=== PATIENT | male | born 1980 | race Caucasian/White ===

== ENCOUNTER 2017-10-30 15:05 | Inpatient (IN) | payer MEDICAID ==
[~2017-10-30] VITALS: Ht 172.7 cm; Wt 68.0 kg
[~2017-10-30 15:05] MED LIST: FOLI-43 PO; HYDR-1189 PO; LIPA1CAP15 PO; METO-290 PO; MULT PO; PRO40 PO; THIA100T13 PO
[2017-10-30 15:21] VITALS: BP_SYST 138
[2017-10-30] MEDS ORDERED: ONDANSETRON HCL 4 MG/2 ML VIAL IVP ONE ×2 (16:15→17:15)
[2017-10-30] MEDS ORDERED: KETOROLAC TROMETHAMINE 30 MG VIAL IVP ONE (16:15)
[2017-10-30 16:22] LABS: BASOPHILS % (AUTO) 0.4 % (0.0-2.0); EOSINOPHILS % (AUTO) 0.2 % (0.0-4.0); HEMATOCRIT 43.1 % (36-54); HEMOGLOBIN 14.9 g/dL (14.0-18.0); LYMPHOCYTES # (AUTO) 2.3 K/uL (1.0-5.5); MEAN CORPUSCULAR HEMOGLOBIN 33 pg (27-31); MEAN CORPUSCULAR HGB CONC 35 % (32-36); MEAN CORPUSCULAR VOLUME 94 fL (79.0-98.0); MONOCYTES # (AUTO) 0.6 K/uL (0.0-1.0); MONOCYTES % (AUTO) 5.8 % (1.7-9.3); NEUTROPHILS % (AUTO) 72.6 % (40.0-70.0); PLATELET COUNT (AUTO) 329 K/uL (130-430); RED BLOOD CELL COUNT(AUTO) 4.56 MIL/uL (4.2-6.2); RED CELL DISTRIBUTION WIDTH 13.2 % (9.0-15.0); WHITE BLOOD COUNT (AUTO) 10.9 K/uL (4.8-10.8)
[2017-10-30 16:39] LABS: CALCIUM 9.6 mg/dL (8.4-11.0); CREATININE 0.94 mg/dL (0.55-1.30); POTASSIUM 3.5 mmol/L (3.5-5.1)
[2017-10-30 16:44] LABS: ALBUMIN 4.2 g/dL (3.4-4.8)
[2017-10-30] MEDS ORDERED: fentaNYL CITRATE/PF 100 MCG/2 ML AMP IVP ONE (17:15)
[2017-10-30 18:33] VITALS: BP_SYST 124
[2017-10-30] MEDS ORDERED: KCL 20 mEq in NS 1000 mL 1,000 ML IV SCH (18:51)
[2017-10-30] MEDS ORDERED: MORPHINE 2 MG/ML INJ. SYRINGE IVP PRN (19:00)
[2017-10-30] MEDS ORDERED: ONDANSETRON HCL 4 MG/2 ML VIAL IVP PRN (19:00)
[2017-10-30] MEDS ORDERED: ACETAMINOPHEN 650 MG SUPP.RECT RC PRN (19:00)
[2017-10-30 19:20] VITALS: BP_SYST 129
[2017-10-30 19:41] VITALS: BP_SYST 151
[2017-10-30] MEDS ORDERED: MORPHINE 4 MG/ML INJ. SYRINGE ONE (21:12)
[2017-10-30] MEDS: BANANA BAG 1 EA, MVI 10 ML, THIAMINE HCL 100 MG, FOLIC ACID 1 MG, MAGNESIUM SULFATE 1 G... IV SCH ×5 (21:14)
[2017-10-30] MEDS: PANTOPRAZOLE SODIUM 40 MG/VIAL (PROTONIX) IVP SCH (21:18)
[2017-10-30 23:17] VITALS: BP_SYST 131
[2017-10-31] MEDS: MORPHINE 4 MG/ML INJ. SYRINGE IVP PRN ×6 (01:25→23:08)
[2017-10-31] MEDS: LORazepam 2 MG/ML VIAL IVP PRN ×2 (02:46→23:35)
[2017-10-31] MEDS: KCL 20 mEq in NS 1000 mL 1,000 ML IV SCH (06:39)
[2017-10-31 07:03] LABS: BASOPHILS % (AUTO) 0.1 % (0.0-2.0); EOSINOPHILS # (AUTO) 0.1 K/uL (0.0-0.4); EOSINOPHILS % (AUTO) 0.8 % (0.0-4.0); HEMATOCRIT 39.8 % (36-54); HEMOGLOBIN 13.7 g/dL (14.0-18.0); LYMPHOCYTES # (AUTO) 3.1 K/uL (1.0-5.5); LYMPHOCYTES % (AUTO) 32.5 % (20.5-51.5); MEAN CORPUSCULAR HEMOGLOBIN 33 pg (27-31); MEAN CORPUSCULAR HGB CONC 34 % (32-36); MEAN CORPUSCULAR VOLUME 97 fL (79.0-98.0); MONOCYTES # (AUTO) 0.6 K/uL (0.0-1.0); MONOCYTES % (AUTO) 6.4 % (1.7-9.3); NEUTROPHILS # (AUTO) 5.7 K/uL (1.8-7.7); NEUTROPHILS % (AUTO) 60.2 % (40.0-70.0); PLATELET COUNT (AUTO) 271 K/uL (130-430); RED BLOOD CELL COUNT(AUTO) 4.12 MIL/uL (4.2-6.2); RED CELL DISTRIBUTION WIDTH 13.4 % (9.0-15.0); WHITE BLOOD COUNT (AUTO) 9.4 K/uL (4.8-10.8)
[2017-10-31 07:32] LABS: ALBUMIN 3.5 g/dL (3.4-4.8); BILIRUBIN,DIRECT 0.3 mg/dL (0.0-0.3); CALCIUM 9.2 mg/dL (8.4-11.0); CREATININE 0.77 mg/dL (0.55-1.30); POTASSIUM 3.2 mmol/L (3.5-5.1); THYROID STIMULATING HORMONE 2.24 uIu/mL (0.34-4.82)
[2017-10-31 08:00] VITALS: BP_SYST 118
[2017-10-31] MEDS ORDERED: POTASSIUM CHLORIDE 40 MEQ, LIDOCAINE JECT 2% PF 100 MG 50 MG in NS 250 ML IV ONE (11:00)
[2017-10-31 12:00] VITALS: BP_SYST 117
[2017-10-31 16:00] VITALS: BP_SYST 110
[2017-10-31] MEDS: PANTOPRAZOLE SODIUM 40 MG/VIAL (PROTONIX) IVP SCH (18:54)
[2017-10-31 19:10] VITALS: BP_SYST 118
[2017-10-31] MEDS ORDERED: VANCOMYCIN HCL 1 GM/NS PREMIX 250 ML IV ONE (20:00)
[2017-10-31] MEDS: BANANA BAG 1 EA, MVI 10 ML, THIAMINE HCL 100 MG, FOLIC ACID 1 MG, MAGNESIUM SULFATE 1 G... IV SCH ×5 (20:31)
[2017-11-01 00:15] VITALS: BP_SYST 116
[2017-11-01 06:29] LABS: BASOPHILS % (AUTO) 0.3 % (0.0-2.0); EOSINOPHILS # (AUTO) 0.1 K/uL (0.0-0.4); EOSINOPHILS % (AUTO) 1.3 % (0.0-4.0); HEMATOCRIT 39.3 % (36-54); HEMOGLOBIN 13.3 g/dL (14.0-18.0); LYMPHOCYTES # (AUTO) 2.6 K/uL (1.0-5.5); LYMPHOCYTES % (AUTO) 31.5 % (20.5-51.5); MEAN CORPUSCULAR HEMOGLOBIN 33 pg (27-31); MEAN CORPUSCULAR HGB CONC 34 % (32-36); MEAN CORPUSCULAR VOLUME 97 fL (79.0-98.0); MONOCYTES # (AUTO) 0.5 K/uL (0.0-1.0); MONOCYTES % (AUTO) 5.7 % (1.7-9.3); NEUTROPHILS % (AUTO) 61.2 % (40.0-70.0); PLATELET COUNT (AUTO) 270 K/uL (130-430); RED BLOOD CELL COUNT(AUTO) 4.07 MIL/uL (4.2-6.2); RED CELL DISTRIBUTION WIDTH 13.3 % (9.0-15.0); WHITE BLOOD COUNT (AUTO) 8.2 K/uL (4.8-10.8)
[2017-11-01 07:22] LABS: ALBUMIN 3.2 g/dL (3.4-4.8); BILIRUBIN,DIRECT 0.2 mg/dL (0.0-0.3); CALCIUM 9.1 mg/dL (8.4-11.0); CREATININE 0.68 mg/dL (0.55-1.30); POTASSIUM 3.7 mmol/L (3.5-5.1); TOTAL BILIRUBIN 0.7 mg/dL (0.0-1.0)
[2017-11-01 09:06] VITALS: BP_SYST 141
[2017-11-01] MEDS: MORPHINE 4 MG/ML INJ. SYRINGE IVP PRN ×4 (09:19→22:27)
[2017-11-01] MEDS: KCL 20 mEq in NS 1000 mL 1,000 ML IV SCH (09:21)
[2017-11-01 11:45] VITALS: BP_SYST 116
[2017-11-01] MEDS ORDERED: ACETAMINOPHEN 325 MG TABLET PO PRN (15:30)
[2017-11-01 16:00] VITALS: BP_SYST 141
[2017-11-01] MEDS: VANCOMYCIN HCL 750 MG in NS 250 ML IV SCH (17:31)
[2017-11-01] MEDS: PANTOPRAZOLE SODIUM 40 MG/VIAL (PROTONIX) IVP SCH (18:42)
[2017-11-01 20:05] VITALS: BP_SYST 119
[2017-11-01] MEDS: BANANA BAG 1 EA, MVI 10 ML, THIAMINE HCL 100 MG, FOLIC ACID 1 MG, MAGNESIUM SULFATE 1 G... IV SCH ×5 (22:30)
[2017-11-02] MEDS: LORazepam 2 MG/ML VIAL IVP PRN ×2 (00:32→23:48)
[2017-11-02 01:01] VITALS: BP_SYST 128
[2017-11-02] MEDS: VANCOMYCIN HCL 750 MG in NS 250 ML IV SCH ×3 (01:32→17:07)
[2017-11-02] MEDS: KCL 20 mEq in NS 1000 mL 1,000 ML IV SCH ×2 (06:00→11:37)
[2017-11-02 07:20] LABS: ALBUMIN 3.3 g/dL (3.4-4.8); CALCIUM 9.6 mg/dL (8.4-11.0); CREATININE 0.64 mg/dL (0.55-1.30); POTASSIUM 4.7 mmol/L (3.5-5.1); TOTAL BILIRUBIN 0.7 mg/dL (0.0-1.0)
[2017-11-02 07:50] VITALS: BP_SYST 116
[2017-11-02] MEDS: MORPHINE 4 MG/ML INJ. SYRINGE IVP PRN ×5 (08:14→21:40)
[2017-11-02 11:40] VITALS: BP_SYST 107
[2017-11-02 17:05] VITALS: BP_SYST 107
[2017-11-02] MEDS: PANTOPRAZOLE SODIUM 40 MG/VIAL (PROTONIX) IVP SCH (18:45)
[2017-11-02 21:35] VITALS: BP_SYST 133
[2017-11-02] MEDS: BANANA BAG 1 EA, MVI 10 ML, THIAMINE HCL 100 MG, FOLIC ACID 1 MG, MAGNESIUM SULFATE 1 G... IV SCH ×5 (21:37)
[2017-11-03 00:21] VITALS: BP_SYST 117
[2017-11-03] MEDS: VANCOMYCIN HCL 750 MG in NS 250 ML IV SCH ×2 (02:19→09:38)
[2017-11-03] MEDS: MORPHINE 4 MG/ML INJ. SYRINGE IVP PRN ×3 (02:29→16:09)
[2017-11-03 07:34] LABS: ALBUMIN 3.1 g/dL (3.4-4.8); CALCIUM 9.2 mg/dL (8.4-11.0); CREATININE 0.68 mg/dL (0.55-1.30); TOTAL BILIRUBIN 0.5 mg/dL (0.0-1.0)
[2017-11-03] MEDS ORDERED: KCL 20 mEq in NS 1000 mL 1,000 ML IV SCH (08:00)
[2017-11-03 08:02] VITALS: BP_SYST 137
[2017-11-03] MEDS ORDERED: THIAMINE HCL 100 MG TABLET PO SCH (09:00)
[2017-11-03] MEDS ORDERED: FOLIC ACID 1 MG TABLET PO SCH (09:00)
[2017-11-03 11:35] VITALS: BP_SYST 124
[2017-11-03 15:59] VITALS: BP_SYST 127
[2017-11-03 16:24] VITALS: BP_SYST 127
== END 2017-11-03 17:25 | disposition home or self-care (01) | DRG 282 ==
LOC: SED 15:05 → STU 17:50 → SMU 10-31 13:39
PROVIDERS: ADMIT Internal Medicine; ATTEND Internal Medicine
DX: K85.20 Alcohol induced acute pancreatitis without necrosis or infection (principal); E87.1 Hypo-osmolality and hyponatremia; F17.200 Nicotine dependence, unspecified, uncomplicated; F10.20 Alcohol dependence, uncomplicated; F12.20 Cannabis dependence, uncomplicated; F41.9 Anxiety disorder, unspecified; R73.9 Hyperglycemia, unspecified; E86.0 Dehydration; E87.6 Hypokalemia
CPT/HCPCS: 36415; 76700-TC; 80048; 80053; 80076; 82150-TC; 83690-TC; 83735-TC; 84443-TC; 85025; 87040-TC; 96374; 96375; 96376; 99285; C9113; J1885; J2060; J2270; J2405; J3010; J3370; J3411; J3475; J3480; J3490; J7030; J7050

== ENCOUNTER 2017-12-02 19:00 | Inpatient (IN) | payer MEDICAID ==
[~2017-12-02] VITALS: Ht 172.7 cm; Wt 72.6 kg
[~2017-12-02 19:00] MED LIST changes: -METO-290 PO; -PRO40 PO
[2017-12-02 19:13] VITALS: BP_SYST 143
[2017-12-02 19:41] LABS: EOSINOPHILS % (AUTO) 0.1 % (0.0-4.0); HEMOGLOBIN 16.3 g/dL (14.0-18.0); LYMPHOCYTES # (AUTO) 2.4 K/uL (1.0-5.5); MEAN CORPUSCULAR HGB CONC 34 % (32-36); MEAN CORPUSCULAR VOLUME 98 fL (79.0-98.0)
[2017-12-02 19:49] LABS: BASOPHILS # (AUTO) 0.2 K/uL (0.0-0.2); BASOPHILS % (AUTO) 1.1 % (0.0-2.0); HEMATOCRIT 47.6 % (36-54); MEAN CORPUSCULAR HEMOGLOBIN 34 pg (27-31); MONOCYTES # (AUTO) 0.4 K/uL (0.0-1.0); MONOCYTES % (AUTO) 2.7 % (1.7-9.3); NEUTROPHILS # (AUTO) 12.1 K/uL (1.8-7.7); NEUTROPHILS % (AUTO) 80.1 % (40.0-70.0); PLATELET COUNT (AUTO) 295 K/uL (130-430); RED BLOOD CELL COUNT(AUTO) 4.86 MIL/uL (4.2-6.2); RED CELL DISTRIBUTION WIDTH 13.3 % (9.0-15.0); WHITE BLOOD COUNT (AUTO) 15.1 K/uL (4.8-10.8)
[2017-12-02] MEDS ORDERED: NACL 0.9% 1,000 ML IV ONE (19:50)
[2017-12-02 19:56] LABS: BILIRUBIN,URINE NEGATIVE (NEGATIVE); BLOOD, URINE NEGATIVE (NEGATIVE); CLARITY/URINE CLEAR (CLEAR); COLOR,URINE YELLOW (YELLOW); GLUCOSE,URINE NEGATIVE (NEGATIVE); KETONES,URINE NEGATIVE (NEGATIVE); LEUKOCYTE ESTERASE ,URINE NEGATIVE (NEGATIVE); NITRITE, URINE NEGATIVE (NEGATIVE); PH,URINE 7.5 (5.0-8.0); PROTEIN URINE NEGATIVE (NEGATIVE); UROBILINOGEN,URINE 0.2 (0.2-1.0)
[2017-12-02] MEDS ORDERED: ONDANSETRON HCL 4 MG/2 ML VIAL IVP ONE (20:00)
[2017-12-02] MEDS ORDERED: MORPHINE 4 MG/ML INJ. SYRINGE IVP ONE (20:00)
[2017-12-02] MEDS ORDERED: DIPHENHYDRAMINE INJ 50 MG/ML VIAL IVP ONE (20:00)
[2017-12-02 20:03] LABS: CALCIUM 9.1 mg/dL (8.4-11.0); CREATININE 0.7 mg/dL (0.55-1.30); POTASSIUM 3.9 mmol/L (3.5-5.1)
[2017-12-02 20:08] LABS: ALBUMIN 4.2 g/dL (3.4-4.8); TOTAL BILIRUBIN 0.3 mg/dL (0.0-1.0)
[2017-12-02] MEDS ORDERED: AMYL1CAP54 PO (20:39)
[2017-12-02] MEDS ORDERED: METO-290 PO (20:39)
[2017-12-02] MEDS ORDERED: LORazepam 2 MG/ML VIAL IVP PRN (21:00)
[2017-12-02] MEDS ORDERED: MORPHINE 4 MG/ML INJ. SYRINGE IVP PRN (21:00)
[2017-12-02 21:05] VITALS: BP_SYST 132
[2017-12-02 21:06] LABS: BARBITURATE, URINE NEGATIVE (NEG <=200); BENZODIAZEPINE, URINE NEGATIVE (NEG <=150); CANNABINOID, URINE POSITIVE (NEG <=50); COCAINE, URINE NEGATIVE (NEG <=150); METHAMPHETAMINES SCREEN,URINE NEGATIVE (NEG <=500); OPIATE, URINE NEGATIVE (NEG <=100); PHENCYCLIDINE SCREEN,URINE NEGATIVE (NEG <=25); UR TRICYCLIC ANTIDEPRESSANTS NEGATIVE (NEG <=300); URINE AMPHETAMINE NEGATIVE (NEG <=500); URINE METHADONE NEGATIVE (NEG <=200); URINE OXYCODONE SCREEN NEGATIVE (NEG <=100); URINE PROPOXYPHENE SCREEN NEGATIVE (NEG <=300)
[2017-12-02] MEDS: D5/0.45 NS 1,000 ML IV SCH (21:48)
[2017-12-03] MEDS: MORPHINE 4 MG/ML INJ. SYRINGE IVP PRN ×5 (00:05→20:06)
[2017-12-03] MEDS: ONDANSETRON HCL 4 MG/2 ML VIAL IVP PRN (00:06)
[2017-12-03 05:49] VITALS: BP_SYST 115
[2017-12-03] MEDS: D5/0.45 NS 1,000 ML IV SCH ×3 (06:42→17:04)
[2017-12-03 07:16] LABS: BASOPHILS # (AUTO) 0.1 K/uL (0.0-0.2); BASOPHILS % (AUTO) 0.8 % (0.0-2.0); EOSINOPHILS # (AUTO) 0.1 K/uL (0.0-0.4); EOSINOPHILS % (AUTO) 0.6 % (0.0-4.0); HEMATOCRIT 43.4 % (36-54); HEMOGLOBIN 14.9 g/dL (14.0-18.0); LYMPHOCYTES % (AUTO) 33.3 % (20.5-51.5); MEAN CORPUSCULAR HEMOGLOBIN 33 pg (27-31); MEAN CORPUSCULAR HGB CONC 34 % (32-36); MEAN CORPUSCULAR VOLUME 97 fL (79.0-98.0); MONOCYTES # (AUTO) 0.8 K/uL (0.0-1.0); MONOCYTES % (AUTO) 8.7 % (1.7-9.3); NEUTROPHILS % (AUTO) 56.6 % (40.0-70.0); PLATELET COUNT (AUTO) 268 K/uL (130-430); RED BLOOD CELL COUNT(AUTO) 4.46 MIL/uL (4.2-6.2); RED CELL DISTRIBUTION WIDTH 13.5 % (9.0-15.0)
[2017-12-03 07:39] LABS: CALCIUM 8.8 mg/dL (8.4-11.0); CREATININE 0.62 mg/dL (0.55-1.30); POTASSIUM 3.8 mmol/L (3.5-5.1)
[2017-12-03 08:00] VITALS: BP_SYST 120
[2017-12-03 12:20] VITALS: BP_SYST 119
[2017-12-03 16:15] VITALS: BP_SYST 125
[2017-12-03 20:00] VITALS: BP_SYST 127
[2017-12-04] MEDS: MORPHINE 4 MG/ML INJ. SYRINGE IVP PRN ×6 (00:09→20:53)
[2017-12-04 01:03] VITALS: BP_SYST 115
[2017-12-04] MEDS: D5/0.45 NS 1,000 ML IV SCH ×2 (04:18→14:09)
[2017-12-04 07:18] LABS: HEMATOCRIT 43.2 % (36-54); HEMOGLOBIN 14.8 g/dL (14.0-18.0); MEAN CORPUSCULAR HEMOGLOBIN 33 pg (27-31); MEAN CORPUSCULAR HGB CONC 34 % (32-36); MEAN CORPUSCULAR VOLUME 97 fL (79.0-98.0); PLATELET COUNT (AUTO) 246 K/uL (130-430); RED BLOOD CELL COUNT(AUTO) 4.45 MIL/uL (4.2-6.2); RED CELL DISTRIBUTION WIDTH 13.4 % (9.0-15.0); WHITE BLOOD COUNT (AUTO) 7.4 K/uL (4.8-10.8)
[2017-12-04 08:00] VITALS: BP_SYST 109
[2017-12-04 08:38] LABS: CREATININE 0.7 mg/dL (0.55-1.30); POTASSIUM 3.8 mmol/L (3.5-5.1)
[2017-12-04 09:52] LABS: BAND % (MANUAL) 0 % (0-6); EOSINOPHILS % (MANUAL) 2 % (0-7); LYMPHOCYTES % (MANUAL) 45 % (20-46); MONOCYTES % (MANUAL) 6 % (0-11)
[2017-12-04 09:53] LABS: BASOPHILS % (MANUAL) 0 % (0-2)
[2017-12-04 12:44] VITALS: BP_SYST 124
[2017-12-04 16:26] VITALS: BP_SYST 111
[2017-12-04 23:26] VITALS: BP_SYST 114
[2017-12-05] MEDS: MORPHINE 4 MG/ML INJ. SYRINGE IVP PRN ×6 (00:41→21:56)
[2017-12-05] MEDS: D5/0.45 NS 1,000 ML IV SCH ×2 (04:29→09:56)
[2017-12-05 07:35] VITALS: BP_SYST 105
[2017-12-05 12:07] VITALS: BP_SYST 107
[2017-12-05] MEDS: ONDANSETRON HCL 4 MG/2 ML VIAL IVP PRN (13:00)
[2017-12-05 16:54] VITALS: BP_SYST 108
[2017-12-05 20:15] VITALS: BP_SYST 100
[2017-12-06 00:58] VITALS: BP_SYST 107
[2017-12-06] MEDS: MORPHINE 4 MG/ML INJ. SYRINGE IVP PRN ×4 (02:27→17:14)
[2017-12-06] MEDS: D5/0.45 NS 1,000 ML IV SCH ×2 (05:22→15:00)
[2017-12-06 06:24] LABS: BASOPHILS # (AUTO) 0.1 K/uL (0.0-0.2); EOSINOPHILS # (AUTO) 0.2 K/uL (0.0-0.4); EOSINOPHILS % (AUTO) 1.9 % (0.0-4.0); HEMATOCRIT 43.2 % (36-54); LYMPHOCYTES # (AUTO) 3.4 K/uL (1.0-5.5); LYMPHOCYTES % (AUTO) 40.9 % (20.5-51.5); MEAN CORPUSCULAR HEMOGLOBIN 34 pg (27-31); MEAN CORPUSCULAR HGB CONC 35 % (32-36); MEAN CORPUSCULAR VOLUME 98 fL (79.0-98.0); MONOCYTES # (AUTO) 0.6 K/uL (0.0-1.0); MONOCYTES % (AUTO) 6.6 % (1.7-9.3); NEUTROPHILS % (AUTO) 49.6 % (40.0-70.0); PLATELET COUNT (AUTO) 273 K/uL (130-430); RED BLOOD CELL COUNT(AUTO) 4.41 MIL/uL (4.2-6.2); RED CELL DISTRIBUTION WIDTH 12.7 % (9.0-15.0); WHITE BLOOD COUNT (AUTO) 8.3 K/uL (4.8-10.8)
[2017-12-06 06:40] LABS: ALBUMIN 3.6 g/dL (3.4-4.8); CALCIUM 9.1 mg/dL (8.4-11.0); CREATININE 0.79 mg/dL (0.55-1.30); POTASSIUM 4.2 mmol/L (3.5-5.1); TOTAL BILIRUBIN 0.6 mg/dL (0.0-1.0)
[2017-12-06 08:00] VITALS: BP_SYST 129
[2017-12-06 12:57] VITALS: BP_SYST 121
[2017-12-06 17:57] VITALS: BP_SYST 124
[2017-12-06] MEDS ORDERED: HYDR-3924 PO (18:11)
== END 2017-12-06 18:50 | disposition home or self-care (01) | DRG 282 ==
LOC: SED 19:00 → SMU 20:54
PROVIDERS: ADMIT Preventive Medicine Preventive Medicine/Occupational Environmental Medicine; ATTEND Preventive Medicine Preventive Medicine/Occupational Environmental Medicine
DX: K85.90 Acute pancreatitis without necrosis or infection, unspecified (principal); E87.0 Hyperosmolality and hypernatremia; R65.10 Systemic inflammatory response syndrome (SIRS) of non-infectious origin without acute organ dysfunction; E16.2 Hypoglycemia, unspecified; F10.10 Alcohol abuse, uncomplicated; F12.10 Cannabis abuse, uncomplicated; E87.1 Hypo-osmolality and hyponatremia; R73.9 Hyperglycemia, unspecified; F17.200 Nicotine dependence, unspecified, uncomplicated; Z87.19 Personal history of other diseases of the digestive system
CPT/HCPCS: 36415; 80048; 80053; 80307; 81003; 82150-TC; 83690-TC; 85007; 85025; 85027; 87081; 96361; 96374; 96375; 99285; G0482; J1200; J2270; J2405; J7030; J7040

== ENCOUNTER 2018-07-10 15:18 | Inpatient (IN) | payer MEDICAID ==
[~2018-07-10] VITALS: Ht 172.7 cm; Wt 79.4 kg
[~2018-07-10 15:18] MED LIST changes: +AMYL1CAP54 PO; +CHLO25CA10 PO; -FOLI-43 PO; -LIPA1CAP15 PO; -MULT PO; +PRO40 PO
[2018-07-10 15:28] VITALS: BP_SYST 162
[2018-07-10] MEDS ORDERED: NACL 0.9% 1,000 ML IV ONE (15:58)
[2018-07-10] MEDS ORDERED: HYDROmorphone 1 MG INJ. 1 MG/ML AMPUL IVP ONE (16:00)
[2018-07-10] MEDS ORDERED: ONDANSETRON HCL 4 MG/2 ML VIAL IVP ONE (16:00)
[2018-07-10 16:08] LABS: BASOPHILS % (AUTO) 0.2 % (0.0-2.0); EOSINOPHILS % (AUTO) 0.1 % (0.0-4.0); HEMATOCRIT 49.9 % (36-54); HEMOGLOBIN 17.3 g/dL (14.0-18.0); LYMPHOCYTES # (AUTO) 2.2 K/uL (1.0-5.5); LYMPHOCYTES % (AUTO) 16.9 % (20.5-51.5); MEAN CORPUSCULAR HEMOGLOBIN 32 pg (27-31); MEAN CORPUSCULAR HGB CONC 35 % (32-36); MEAN CORPUSCULAR VOLUME 92 fL (79.0-98.0); MONOCYTES # (AUTO) 0.5 K/uL (0.0-1.0); MONOCYTES % (AUTO) 3.5 % (1.7-9.3); NEUTROPHILS # (AUTO) 10.5 K/uL (1.8-7.7); NEUTROPHILS % (AUTO) 79.3 % (40.0-70.0); PLATELET COUNT (AUTO) 346 K/uL (130-430); RED CELL DISTRIBUTION WIDTH 13.9 % (9.0-15.0); WHITE BLOOD COUNT (AUTO) 13.2 K/uL (4.8-10.8)
[2018-07-10] MEDS ORDERED: MORPHINE 4 MG/ML INJ. SYRINGE IVP ONE ×3 (16:15→20:15)
[2018-07-10 16:17] LABS: BILIRUBIN,URINE 2+ (NEGATIVE); BLOOD, URINE TRACE (NEGATIVE); CLARITY/URINE CLEAR (CLEAR); COLOR,URINE YELLOW (YELLOW); GLUCOSE,URINE NEGATIVE (NEGATIVE); KETONES,URINE 1+ (NEGATIVE); LEUKOCYTE ESTERASE ,URINE NEGATIVE (NEGATIVE); NITRITE, URINE NEGATIVE (NEGATIVE); PH,URINE 5.5 (5.0-8.0); PROTEIN URINE 2+ (NEGATIVE)
[2018-07-10 16:19] LABS: CALCIUM 10.1 mg/dL (8.4-11.0); CREATININE 0.98 mg/dL (0.55-1.30); POTASSIUM 4.2 mmol/L (3.5-5.1)
[2018-07-10 16:20] LABS: PROTHROMBIN TIME 10.5 SECS (9.5-12.5)
[2018-07-10 16:23] LABS: RBC,URINE 0-3 /HPF (0-3); WBC,URINE 0-3 /HPF (0-3)
[2018-07-10 16:24] LABS: BACTERIA,URINE FEW /HPF (None Seen)
[2018-07-10 16:24] LABS: ALBUMIN 4.7 g/dL (3.4-4.8); TOTAL BILIRUBIN 0.7 mg/dL (0.0-1.0)
[2018-07-10] MEDS ORDERED: LIPA1CAP23 PO (16:29)
[2018-07-10] MEDS ORDERED: KCL 20 mEq in D5/0.45NS 1000mL 1,000 ML IV ONE (20:30)
[2018-07-10 20:41] VITALS: BP_SYST 151
[2018-07-10] MEDS ORDERED: HYDROmorphone 1 MG INJ. 1 MG/ML AMPUL IVP PRN (21:00)
[2018-07-10] MEDS ORDERED: chlordiazePOXIDE HCL 25 MG CAPSULE PO PRN (21:15)
[2018-07-10] MEDS ORDERED: cloNIDine HCL 0.1 MG TABLET PO SCH (21:30)
[2018-07-10] MEDS: ONDANSETRON HCL 4 MG/2 ML VIAL IVP PRN (21:46)
[2018-07-10] MEDS: HYDROmorphone 2 MG/ML VIAL IVP PRN (21:46)
[2018-07-11 00:35] VITALS: BP_SYST 130
[2018-07-11] MEDS: HYDROmorphone 2 MG/ML VIAL IVP PRN ×6 (02:00→21:50)
[2018-07-11] MEDS: ONDANSETRON HCL 4 MG/2 ML VIAL IVP PRN ×2 (06:04→15:14)
[2018-07-11] MEDS: PANTOPRAZOLE SODIUM 40 MG TAB PO SCH (06:04)
[2018-07-11 08:00] VITALS: BP_SYST 125
[2018-07-11] MEDS: cloNIDine HCL 0.1 MG TABLET PO SCH ×2 (08:06→20:30)
[2018-07-11] MEDS: ENOXAPARIN SODIUM 40 MG/0.4 ML SYRINGE SUBCUT SCH (08:07)
[2018-07-11 08:34] LABS: RED BLOOD CELL COUNT(AUTO) 4.73 MIL/uL (4.2-6.2); WHITE BLOOD COUNT (AUTO) 11.4 K/uL (4.8-10.8)
[2018-07-11 08:40] LABS: HEMATOCRIT 44.5 % (36-54); HEMOGLOBIN 15.6 g/dL (14.0-18.0); MEAN CORPUSCULAR HEMOGLOBIN 33 pg (27-31); MEAN CORPUSCULAR HGB CONC 35 % (32-36); MEAN CORPUSCULAR VOLUME 94 fL (79.0-98.0); PLATELET COUNT (AUTO) 281 K/uL (130-430); RED CELL DISTRIBUTION WIDTH 13.7 % (9.0-15.0)
[2018-07-11 08:41] LABS: BASOPHILS % (AUTO) 0.1 % (0.0-2.0); EOSINOPHILS % (AUTO) 0.3 % (0.0-4.0); LYMPHOCYTES # (AUTO) 2.4 K/uL (1.0-5.5); LYMPHOCYTES % (AUTO) 21.2 % (20.5-51.5); MONOCYTES # (AUTO) 0.6 K/uL (0.0-1.0); MONOCYTES % (AUTO) 5.1 % (1.7-9.3); NEUTROPHILS # (AUTO) 8.4 K/uL (1.8-7.7); NEUTROPHILS % (AUTO) 73.3 % (40.0-70.0)
[2018-07-11 09:01] LABS: CALCIUM 9.2 mg/dL (8.4-11.0); CREATININE 0.7 mg/dL (0.55-1.30); POTASSIUM 3.9 mmol/L (3.5-5.1)
[2018-07-11] MEDS: KCL 20 mEq in D5/0.45NS 1000mL 1,000 ML IV SCH ×3 (11:37→21:23)
[2018-07-11 12:41] VITALS: BP_SYST 133
[2018-07-11 16:40] VITALS: BP_SYST 134
[2018-07-11 20:00] VITALS: BP_SYST 127
[2018-07-12 00:19] VITALS: BP_SYST 118
[2018-07-12] MEDS: HYDROmorphone 2 MG/ML VIAL IVP PRN ×6 (01:51→22:26)
[2018-07-12] MEDS: KCL 20 mEq in D5/0.45NS 1000mL 1,000 ML IV SCH ×3 (05:42→23:20)
[2018-07-12] MEDS: PANTOPRAZOLE SODIUM 40 MG TAB PO SCH (05:56)
[2018-07-12 07:51] LABS: CALCIUM 9.1 mg/dL (8.4-11.0); CREATININE 0.8 mg/dL (0.55-1.30)
[2018-07-12 07:55] LABS: HEMATOCRIT 41.5 % (36-54); MEAN CORPUSCULAR HEMOGLOBIN 32 pg (27-31); MEAN CORPUSCULAR HGB CONC 34 % (32-36); MEAN CORPUSCULAR VOLUME 96 fL (79.0-98.0); PLATELET COUNT (AUTO) 238 K/uL (130-430); RED BLOOD CELL COUNT(AUTO) 4.33 MIL/uL (4.2-6.2); RED CELL DISTRIBUTION WIDTH 13.9 % (9.0-15.0); WHITE BLOOD COUNT (AUTO) 6.2 K/uL (4.8-10.8)
[2018-07-12 07:56] LABS: LYMPHOCYTES % (AUTO) 38.2 % (20.5-51.5); NEUTROPHILS % (AUTO) 54.4 % (40.0-70.0)
[2018-07-12 07:57] LABS: BASOPHILS % (AUTO) 0.2 % (0.0-2.0); EOSINOPHILS # (AUTO) 0.1 K/uL (0.0-0.4); EOSINOPHILS % (AUTO) 0.9 % (0.0-4.0); LYMPHOCYTES # (AUTO) 2.4 K/uL (1.0-5.5); MONOCYTES # (AUTO) 0.4 K/uL (0.0-1.0); MONOCYTES % (AUTO) 6.3 % (1.7-9.3); NEUTROPHILS # (AUTO) 3.3 K/uL (1.8-7.7)
[2018-07-12 08:00] VITALS: BP_SYST 116
[2018-07-12] MEDS: THIAMINE HCL 100 MG TABLET PO SCH (08:07)
[2018-07-12] MEDS: cloNIDine HCL 0.1 MG TABLET PO SCH ×2 (08:08→21:44)
[2018-07-12] MEDS: ENOXAPARIN SODIUM 40 MG/0.4 ML SYRINGE SUBCUT SCH (08:09)
[2018-07-12 11:38] VITALS: BP_SYST 115
[2018-07-12 15:33] VITALS: BP_SYST 113
[2018-07-12 19:40] VITALS: BP_SYST 110
[2018-07-12] MEDS: ONDANSETRON HCL 4 MG/2 ML VIAL IVP PRN (22:25)
[2018-07-13 00:39] VITALS: BP_SYST 103
[2018-07-13] MEDS: HYDROmorphone 2 MG/ML VIAL IVP PRN ×6 (02:32→22:25)
[2018-07-13] MEDS: KCL 20 mEq in D5/0.45NS 1000mL 1,000 ML IV SCH ×3 (06:26→20:44)
[2018-07-13] MEDS: PANTOPRAZOLE SODIUM 40 MG TAB PO SCH (06:26)
[2018-07-13 06:28] VITALS: BP_SYST 112
[2018-07-13 08:00] VITALS: BP_SYST 104
[2018-07-13] MEDS: THIAMINE HCL 100 MG TABLET PO SCH (08:44)
[2018-07-13] MEDS: cloNIDine HCL 0.1 MG TABLET PO SCH ×2 (08:44→20:44)
[2018-07-13] MEDS: ENOXAPARIN SODIUM 40 MG/0.4 ML SYRINGE SUBCUT SCH (08:45)
[2018-07-13 08:55] LABS: POTASSIUM 4.4 mmol/L (3.5-5.1)
[2018-07-13 08:56] LABS: CREATININE 0.79 mg/dL (0.55-1.30)
[2018-07-13 08:59] LABS: TOTAL BILIRUBIN 0.6 mg/dL (0.0-1.0)
[2018-07-13 09:26] LABS: HEMATOCRIT 41.3 % (36-54); HEMOGLOBIN 13.9 g/dL (14.0-18.0); MEAN CORPUSCULAR HEMOGLOBIN 32 pg (27-31); MEAN CORPUSCULAR HGB CONC 34 % (32-36); MEAN CORPUSCULAR VOLUME 95 fL (79.0-98.0); RED BLOOD CELL COUNT(AUTO) 4.35 MIL/uL (4.2-6.2); WHITE BLOOD COUNT (AUTO) 8.1 K/uL (4.8-10.8)
[2018-07-13 09:27] LABS: BASOPHILS % (AUTO) 0.2 % (0.0-2.0); EOSINOPHILS # (AUTO) 0.1 K/uL (0.0-0.4); LYMPHOCYTES # (AUTO) 2.5 K/uL (1.0-5.5); LYMPHOCYTES % (AUTO) 30.4 % (20.5-51.5); MONOCYTES # (AUTO) 0.4 K/uL (0.0-1.0); MONOCYTES % (AUTO) 4.7 % (1.7-9.3); NEUTROPHILS # (AUTO) 5.1 K/uL (1.8-7.7); NEUTROPHILS % (AUTO) 63.7 % (40.0-70.0); PLATELET COUNT (AUTO) 259 K/uL (130-430); RED CELL DISTRIBUTION WIDTH 13.7 % (9.0-15.0)
[2018-07-13 11:31] VITALS: BP_SYST 100
[2018-07-13] MEDS: ONDANSETRON HCL 4 MG/2 ML VIAL IVP PRN (12:41)
[2018-07-13 15:22] VITALS: BP_SYST 138
[2018-07-13 20:00] VITALS: BP_SYST 120
[2018-07-14] VITALS: BP_SYST 107
[2018-07-14] MEDS: HYDROmorphone 2 MG/ML VIAL IVP PRN ×4 (02:26→14:21)
[2018-07-14] MEDS: KCL 20 mEq in D5/0.45NS 1000mL 1,000 ML IV SCH ×2 (03:02→10:13)
[2018-07-14] MEDS: PANTOPRAZOLE SODIUM 40 MG TAB PO SCH (06:16)
[2018-07-14 08:00] VITALS: BP_SYST 114
[2018-07-14 08:52] LABS: CREATININE 0.69 mg/dL (0.55-1.30); POTASSIUM 4.5 mmol/L (3.5-5.1)
[2018-07-14] MEDS: cloNIDine HCL 0.1 MG TABLET PO SCH (09:03)
[2018-07-14] MEDS: THIAMINE HCL 100 MG TABLET PO SCH (09:03)
[2018-07-14] MEDS: ENOXAPARIN SODIUM 40 MG/0.4 ML SYRINGE SUBCUT SCH (09:05)
[2018-07-14 09:34] LABS: HEMATOCRIT 42.6 % (36-54); HEMOGLOBIN 14.4 g/dL (14.0-18.0); MEAN CORPUSCULAR HEMOGLOBIN 33 pg (27-31); MEAN CORPUSCULAR HGB CONC 34 % (32-36); MEAN CORPUSCULAR VOLUME 96 fL (79.0-98.0); PLATELET COUNT (AUTO) 298 K/uL (130-430); RED BLOOD CELL COUNT(AUTO) 4.42 MIL/uL (4.2-6.2); RED CELL DISTRIBUTION WIDTH 13.4 % (9.0-15.0); WHITE BLOOD COUNT (AUTO) 6.1 K/uL (4.8-10.8)
[2018-07-14 15:44] LABS: BASOPHILS % (MANUAL) 0 % (0-2); EOSINOPHILS % (MANUAL) 4 % (0-7); LYMPHOCYTES % (MANUAL) 41 % (20-46); MONOCYTES % (MANUAL) 4 % (0-11)
[2018-07-14 16:00] VITALS: BP_SYST 121
[2018-07-14 16:11] VITALS: BP_SYST 121
== END 2018-07-14 16:50 | disposition home or self-care (01) | DRG 282 ==
LOC: SED 15:18 → SMU 20:29
PROVIDERS: ADMIT Family Medicine; ATTEND Family Medicine
DX: K85.20 Alcohol induced acute pancreatitis without necrosis or infection (principal); R65.10 Systemic inflammatory response syndrome (SIRS) of non-infectious origin without acute organ dysfunction; E87.1 Hypo-osmolality and hyponatremia; F17.200 Nicotine dependence, unspecified, uncomplicated; K86.0 Alcohol-induced chronic pancreatitis; F10.20 Alcohol dependence, uncomplicated
CPT/HCPCS: 36415; 80048; 80053; 81000-TC; 82150-TC; 83690-TC; 83735-TC; 85007; 85025; 85027; 85610-TC; 96361; 96374; 96375; 96376; 99285; J1170; J1650; J2270; J2405

== ENCOUNTER 2019-09-15 16:09 | Inpatient (IN) | payer BC, MEDICAID ==
[~2019-09-15] VITALS: Ht 170.2 cm; Wt 73.0 kg
[~2019-09-15 16:09] MED LIST changes: -AMYL1CAP54 PO; -CHLO25CA10 PO; -HYDR-1189 PO; +LIPA1CAP23 PO; -THIA100T13 PO
--- NOTE | 2019-09-15 16:40 | NUR ---
Patient to ER bed 07 to gown for evaluation. Side rails up.
--- NOTE | 2019-09-15 17:14 | NUR ---
Patient ambulated to bed 7. Patient complains of upper abdominal pain for two days that "shoots to his back". Patients rates pain at a 9 out of 10. Patients reports episodes of vomiting and diarrhea for two days that is off and on. Hx of pancreatitis. Patient states he drank two beers at 11 this morning. Will continue to monitor.
--- NOTE | 2019-09-15 17:14 | NUR ---
ER at bedside examining patient.
[2019-09-15] MEDS ORDERED: KETOROLAC TROMETHAMINE 30 MG VIAL IVP ONE (17:15)
[2019-09-15] MEDS ORDERED: NACL 0.9% 1,000 ML IV ONE (17:15)
--- NOTE | 2019-09-15 17:39 | NUR ---
# 20 gauge angiocath placed to LAC. Use of asceptic technique. Opsite placed over site. Blood return noted. Blood, blood cultures, and lactic for lab drawn from site. Flushed with 10 cc of normal saline. No evidence of infiltration noted. Patient tolerated well.
[2019-09-15 17:41] LABS: BASOPHILS # (AUTO) 0.1 K/uL (0.0-0.2); BASOPHILS % (AUTO) 0.6 % (0.0-2.0); EOSINOPHILS % (AUTO) 0.2 % (0.0-4.0); HEMATOCRIT 42.7 % (36-54); HEMOGLOBIN 14.7 g/dL (14.0-18.0); LYMPHOCYTES # (AUTO) 2.3 K/uL (1.0-5.5); MEAN CORPUSCULAR HEMOGLOBIN 34 pg (27-31); MEAN CORPUSCULAR HGB CONC 35 % (32-36); MEAN CORPUSCULAR VOLUME 98 fL (79.0-98.0); MONOCYTES # (AUTO) 0.7 K/uL (0.0-1.0); MONOCYTES % (AUTO) 7.5 % (1.7-9.3); NEUTROPHILS # (AUTO) 6.8 K/uL (1.8-7.7); NEUTROPHILS % (AUTO) 68.7 % (40.0-70.0); PLATELET COUNT (AUTO) 393 K/uL (130-430); RED BLOOD CELL COUNT(AUTO) 4.38 MIL/uL (4.2-6.2); RED CELL DISTRIBUTION WIDTH 13.8 % (9.0-15.0)
--- NOTE | 2019-09-15 17:43 | NUR ---
Medicated per MD orders. IVF infusing with no s/s of infiltration at this time. Will cont to monitor
--- NOTE | 2019-09-15 17:44 | NUR ---
Medication reconciliation completed with information provided by PATIENT. Any prior medication reconciliation on file was reviewed and corrected.
[2019-09-15 17:49] LABS: CREATININE 0.73 mg/dL (0.55-1.30); POTASSIUM 5.1 mmol/L (3.5-5.1)
[2019-09-15 17:55] LABS: ALBUMIN 3.3 g/dL (3.4-4.8); TOTAL BILIRUBIN 0.6 mg/dL (0.0-1.0)
--- NOTE | 2019-09-15 19:23 | NUR ---
Patient's code status is FULL CODE paperwork completed and placed in chart.
--- NOTE | 2019-09-15 19:28 | NUR ---
PATIENT UP TO BED TO URINATE. PATIENT TOLERATED WELL
[2019-09-15] MEDS ORDERED: DIPHENHYDRAMINE INJ 50 MG/ML VIAL IVP ONE (20:00)
[2019-09-15] MEDS ORDERED: MORPHINE 4 MG/ML INJ. SYRINGE IVP ONE (20:00)
--- NOTE | 2019-09-15 20:02 | NUR ---
Patient will be admitted to care of Dr. Meadows. Admitted to [facility] unit. Bed placement pending. Complete and up to date summary report printed. SBAR report to be given at bedside with opportunity for questions.
[2019-09-15] MEDS ORDERED: MORPHINE 2 MG/ML INJ. SYRINGE IVP PRN (21:45)
[2019-09-15] MEDS ORDERED: ALBUTEROL SULFATE 0.083% 2.5 MG/3 ML VIAL.NEB INH PRN (21:45)
--- NOTE | 2019-09-15 21:59 | NUR ---
Patient to be admitted bed 123b. Report given to ANJU Monge.
--- NOTE | 2019-09-15 22:00 | NUR ---
Transfer to [facility]. IV present no sign or symptom of infiltration.
[2019-09-15 22:12] VITALS: BP_SYST 143
--- NOTE | 2019-09-15 22:12 | NUR ---
ADMISSION NOTE Received patient from ER via piero, received report from ANJU KIM. Patient admitted with diagnosis of PANCREATITIS. Patient oriented to hospital routine, call light, toileting and safety-patient verbalized understanding.
[2019-09-15 22:16] VITALS: BP_SYST 125
[2019-09-15] MEDS: cefTRIAXone 1 GM IVPB PREMIX 50 ML IV SCH (22:26)
[2019-09-15] MEDS: NACL 0.9% 1,000 ML IV SCH (22:27)
[2019-09-15] MEDS ORDERED: cefTRIAXone 1 GM IVPB PREMIX 50 ML IV ONE (22:28)
[2019-09-15] MEDS: MORPHINE 4 MG/ML INJ. SYRINGE IVP PRN (22:30)
[2019-09-15] MEDS ORDERED: FOLIC ACID 1 MG, THIAMINE HCL 100 MG, MAGNESIUM SULFATE 1 GM, MVI 10 ML in NACL 0.9% 1,... IV SCH (22:30)
--- NOTE | 2019-09-15 22:30 | NUR ---
Pain Patient complains of pain 9/10 to his abdomen. PRN morphine 4mg indicated for severe pain. Educated patient on medication uses and potential side effects, patient able to verbalize understanding, administered medication per MD order, patient tolerated well. Safety and fall precautions in place, bed locked and in lowest position, two side rails up, call light with patient, will continue to monitor.
[2019-09-16] VITALS: BP_SYST 139
--- NOTE | 2019-09-16 00:31 | NUR ---
RN Rounds Patient resting in bed, A/Ox4, no signs of acute distress, patient complains of abdominal discomfort and pain but verbalizes he can tolerate his pain until his next dose of pain medication, even and unlabored breathing on room air, IV to left AC infusing NS @ 175ml/hr per MD order, patent/benign. Safety and fall precautions in place, patient refused bed alarm despite education, patient has a steady gait and verbalized he will use his call light for assistance out of bed, bed locked and in lowest position, two side rails up, call light with patient, will continue to monitor.
[2019-09-16] MEDS: ONDANSETRON HCL 4 MG/2 ML VIAL IVP PRN (02:08)
--- NOTE | 2019-09-16 02:30 | NUR ---
Nausea/Pain Patient complains of nausea, no emesis noted. Patient also complains of pain 8/10 to his middle abdomen. PRN Zofran 4mg IVP indicated for nausea and vomiting. PRN morphine 4mg IVP indicated for severe pain. Educated patient on medications uses and potential side effects, patient able to verbalize understanding, administered medication per MD order, patient tolerated well. Safety and fall precautions in place, bed locked and in lowest position, two side rails up, call light with patient, will continue to monitor.
[2019-09-16] MEDS: MORPHINE 4 MG/ML INJ. SYRINGE IVP PRN (02:31)
--- NOTE | 2019-09-16 04:05 | NUR ---
MD Rounds Dr. Paz at bedside, MD aware of patient's status, MD ordered CT of abdomen/pelvis with contrast to rule out pseudocyst. MD made aware that scheduled 2230 banana bag cannot be mixed during NOC shift and has to be mixed by pharmacy during dayshift, will call pharmacy to change scheduled time, MD okayed.
[2019-09-16] MEDS ORDERED: HYDROmorphone 1 MG INJ. 1 MG/ML AMPUL IM PRN (04:15)
[2019-09-16] MEDS: NACL 0.9% 1,000 ML IV SCH ×4 (04:50→21:41)
[2019-09-16] MEDS: HYDROmorphone 1 MG INJ. 1 MG/ML AMPUL IVP PRN ×6 (05:02→23:19)
--- NOTE | 2019-09-16 05:06 | NUR ---
Pain Patient complains of pain 8/10 to his middle abdomen. PRN Dilaudid 1mg IVP indicated for severe pain. Educated patient on medication uses and potential side effects, patient able to verbalize understanding, administered medication per MD order, patient tolerated well. Safety and fall precautions in place, bed locked and in lowest position, two side rails up, call light with patient, will continue to monitor.
[2019-09-16 06:26] LABS: BASOPHILS # (AUTO) 0.1 K/uL (0.0-0.2); BASOPHILS % (AUTO) 0.9 % (0.0-2.0); EOSINOPHILS % (AUTO) 0.4 % (0.0-4.0); HEMATOCRIT 43.4 % (36-54); HEMOGLOBIN 14.6 g/dL (14.0-18.0); LYMPHOCYTES # (AUTO) 2.1 K/uL (1.0-5.5); LYMPHOCYTES % (AUTO) 29.8 % (20.5-51.5); MEAN CORPUSCULAR HEMOGLOBIN 33 pg (27-31); MEAN CORPUSCULAR HGB CONC 34 % (32-36); MEAN CORPUSCULAR VOLUME 99 fL (79.0-98.0); MONOCYTES # (AUTO) 0.7 K/uL (0.0-1.0); MONOCYTES % (AUTO) 9.6 % (1.7-9.3); NEUTROPHILS # (AUTO) 4.2 K/uL (1.8-7.7); NEUTROPHILS % (AUTO) 59.3 % (40.0-70.0); PLATELET COUNT (AUTO) 327 K/uL (130-430); RED BLOOD CELL COUNT(AUTO) 4.39 MIL/uL (4.2-6.2); RED CELL DISTRIBUTION WIDTH 13.9 % (9.0-15.0)
[2019-09-16 07:00] LABS: CALCIUM 8.6 mg/dL (8.4-11.0); CREATININE 0.7 mg/dL (0.55-1.30); POTASSIUM 4.9 mmol/L (3.5-5.1); TOTAL BILIRUBIN 0.8 mg/dL (0.0-1.0)
--- NOTE | 2019-09-16 07:15 | NUR ---
OPENING NOTES PT AWAKE, ALERT, AND ORIENTED. NONLABORED BREATHING NOTED ON ROOM AIR, O2 SAT AT 97%. NO ACUTE DISTRESS NOTED. ALL NEEDS MET. IV LINE INTACT AND PATENT, NO SIGNS OF INFILTRATION NOTED. FLUIDS RUNNING ORDERED PER MD, TOLERATING WELL. HOB ELEVATED. BED LOCKED AND IN LOWEST POSITION. CALL LIGHT IN REACH. FALL AND ASPIRATION PRECAUTIONS IN PLACE. CONTINUE TO MONITOR.
[2019-09-16] MEDS: THIAMINE HCL 100 MG, MAGNESIUM SULFATE 1 GM in NS 100 ML IV SCH (07:59)
[2019-09-16 08:00] VITALS: BP_SYST 141
[2019-09-16] MEDS: FOLIC ACID 1 MG, MVI 10 ML in NACL 0.9% 1,000 ML IV SCH (08:00)
--- NOTE | 2019-09-16 08:13 | NUR ---
ROUTINE MEDS ROUTINE MEDS ADMINISTERED ORDERED PER MD, EDUCATION GIVEN, TOLERATED WELL. NO ACUTE DISTRESS NOTED. ALL NEEDS MET. CALL LIGHT IN REACH. CONTINUE TO MONITOR.
[2019-09-16] MEDS: PANTOPRAZOLE SODIUM 40 MG TAB PO SCH (08:30)
[2019-09-16] MEDS ORDERED: DIATR MEGLU/DIATRIZ SOD 30 ML SOLUTION PO ONE (08:52)
--- NOTE | 2019-09-16 10:00 | NUR ---
ROUNDS PT AWAKE, ALERT, AND ORIENTED. WATCHING TELEVISION IN BED. NO ACUTE DISTRESS NOTED. ALL NEEDS MET. CALL LIGHT IN REACH. CONTINUE TO MONITOR.
--- NOTE | 2019-09-16 10:37 | NUR ---
SS NOTES: TALCER was referred by nursing to see patient for alcoholism. Demographic information confirmed. TALCER met with patient at bedside. Pt was alert and oriented x4. Pt appeared to be disheveled, with normal speech and average eye contact. Pt was cooperative throughout the encounter and affect was appropriate with intact thought process. Pt is a 38 y/o single male who came in via ED for pancreatitis. Pt lives with parents and is independent on all his ADL's with no need for DME. Pt has a history of alcohol abuse, increased in 2017 after a "breakup" and "loss of a baby". Pt stated he went to alcohol rehab from December through March in 2018, sober for one year and relapsed "a couple of times" and recent relapse was this Saturday. Pt stated his trigger this time was, "something going on at work". Pt's drink of choice is beer and last intake was yesterday. Pt denies any history of depression/anxiety or mental health diagnosis. Pt denies having thoughts of hurting self/others. TALCER provided patient with substance abuse resource. TALCER educated patient that if mental health resource is needed, to inform his CM [place] while in the hospital; pt agreed. No further SS needs identified at this time, but will remain available when needed.
[2019-09-16] MEDS ORDERED: IOHEXOL 100 ML IV ONE (10:52)
[2019-09-16] MEDS: LORazepam 2 MG/ML VIAL IVP PRN (10:59)
--- NOTE | 2019-09-16 11:02 | NUR ---
PT TAKEN TO RADIOLOGY. OFF THE FLOOR.
--- NOTE | 2019-09-16 11:20 | NUR ---
PT RETURNED TO FLOOR. PT STABLE, WATCHING TELEVISION IN BED. ALL NEEDS MET. CALL LIGHT IN REACH. CONTINUE TO MONITOR.
--- NOTE | 2019-09-16 11:47 | NUR ---
CONSULT: CONSULT CALLED FOR Tom VALDOVINOS I SPOKE WITH JULITA FROM [employer] REASON FOR CONSULT: PANCREATITIS REQUESTING CONSULT: DR. CHOW SHEET METAL SHOP SUPERVISOR PHONE NUMBER: [phone]
[2019-09-16 12:28] VITALS: BP_SYST 132
--- NOTE | 2019-09-16 13:00 | NUR ---
ROUNDS PT RESTING IN BED. CHEST RISE AND FALL NOTED, EASILY AWAKEN. NO ACUTE DISTRESS NOTED. ALL NEEDS MET. CALL LIGHT IN REACH. CONTINUE TO MONITOR.
--- NOTE | 2019-09-16 15:00 | NUR ---
ROUNDS PT AWAKE, ALERT, AND ORIENTED IN BED. WATCHING TELEVISION. NO ACUTE DISTRESS NOTED. ALL NEEDS MET. CALL LIGHT IN REACH. CONTINUE TO MONITOR.
[2019-09-16 16:33] VITALS: BP_SYST 127
--- NOTE | 2019-09-16 17:06 | NUR ---
PRN MEDS PRN MEDS ADMINISTERED ORDERED PER MD FOR PAIN, EDUCATION GIVEN, TOLERATED WELL. NO ACUTE DISTRESS NOTED. ALL NEEDS MET. CALL LIGHT IN REACH. FOLIC ACID 1MG MVI 10ML IN NACL 0.9% 1,000ML FLUID STILL INFUSING ORDERED PER MD, TOLERATING WELL. CONTINUE TO MONITOR.
--- NOTE | 2019-09-16 18:49 | NUR ---
CLOSING NOTES PT AWAKE, ALERT, AND ORIENTED. WATCHING TELEVISION IN BED. NONLABORED BREATHING NOTED ON ROOM AIR. DENIES SOB, NO USE OF ACCESSORY MUSCLES NOTED. NO ACUTE DISTRESS NOTED. ALL NEEDS MET. HOB ELEVATED. IV LINE INTACT AND PATENT, NO SIGNS OF INFILTRATION NOTED. FLUIDS RUNNING ORDERED PER MD, TOLERATING WELL. SCD'S IN PLACE. BED LOCKED AND IN LOWEST POSITION. CALL LIGHT IN REACH. FALL AND ASPIRATION PRECAUTIONS IN PLACE. WILL ENDORSE TO NOC NURSE.
--- NOTE | 2019-09-16 19:30 | NUR ---
OPENING NOTES Patient is resting in bed, no signs of distress observed. Patient verbalized that pain increases when he ambulates to go to the restroom. IVF running, dressings c/d/i. Call light within reach, bed alarm refused after patient education provided and patient verbalizes understanding, bed at lowest position. Will continue to monitor.
[2019-09-16 20:00] VITALS: BP_SYST 125
--- NOTE | 2019-09-16 20:30 | NUR ---
Patient taken to go smoke with EDGE DYER present on wheelchair. Patient has vitals within normal limits. Discontinued from IVF for short period of time.
--- NOTE | 2019-09-16 20:40 | NUR ---
SPOKE TO DR. CISNEROS, UPDATED THAT PATIENT IS RECEIVING IVF OF NS AND FOLVITE AND IN A PAIN OF 7/10 RECEIVING DILAUDID THAT HELPS PATIENT TO GO DOWN TO ABOUT A 5/10. DR. CISNEROS STATES THAT HE WILL SEE PATIENT TOMORROW.
[2019-09-16] MEDS: cefTRIAXone 1 GM IVPB PREMIX 50 ML IV SCH (21:07)
--- NOTE | 2019-09-17 00:05 | NUR ---
Patient is provided warm blankets to ease the pain. Will continue to monitor.
[2019-09-17 00:06] VITALS: BP_SYST 130
[2019-09-17] MEDS: HYDROmorphone 1 MG INJ. 1 MG/ML AMPUL IVP PRN ×7 (02:30→22:06)
[2019-09-17] MEDS: NACL 0.9% 1,000 ML IV SCH ×3 (04:23→16:51)
[2019-09-17 06:27] LABS: BASOPHILS % (AUTO) 0.4 % (0.0-2.0); EOSINOPHILS # (AUTO) 0.1 K/uL (0.0-0.4); EOSINOPHILS % (AUTO) 0.8 % (0.0-4.0); HEMATOCRIT 41.1 % (36-54); HEMOGLOBIN 13.8 g/dL (14.0-18.0); LYMPHOCYTES # (AUTO) 1.9 K/uL (1.0-5.5); LYMPHOCYTES % (AUTO) 28.8 % (20.5-51.5); MEAN CORPUSCULAR HEMOGLOBIN 33 pg (27-31); MEAN CORPUSCULAR HGB CONC 34 % (32-36); MEAN CORPUSCULAR VOLUME 98 fL (79.0-98.0); MONOCYTES # (AUTO) 0.4 K/uL (0.0-1.0); MONOCYTES % (AUTO) 6.4 % (1.7-9.3); NEUTROPHILS # (AUTO) 4.2 K/uL (1.8-7.7); NEUTROPHILS % (AUTO) 63.6 % (40.0-70.0); PLATELET COUNT (AUTO) 308 K/uL (130-430); RED BLOOD CELL COUNT(AUTO) 4.17 MIL/uL (4.2-6.2); RED CELL DISTRIBUTION WIDTH 13.5 % (9.0-15.0); WHITE BLOOD COUNT (AUTO) 6.6 K/uL (4.8-10.8)
[2019-09-17 06:39] LABS: ALBUMIN 2.9 g/dL (3.4-4.8); CALCIUM 8.5 mg/dL (8.4-11.0); CREATININE 0.69 mg/dL (0.55-1.30); POTASSIUM 4.2 mmol/L (3.5-5.1); TOTAL BILIRUBIN 0.7 mg/dL (0.0-1.0)
--- NOTE | 2019-09-17 06:47 | NUR ---
CLOSING NOTES Patient is resting, no signs of acute respiratory distress observed. Patient wants to go smoke but explained that we are not able to as it is shift change. Patient verbalized understanding. IVF running, dressings c/d/i. Pain medication provided for 01/14 pain. Call light within reach, bed at lowest position, bed alarm refused after patient verbalized understanding. All needs met throughout shift. Will endorse care to oncoming shift.
--- NOTE | 2019-09-17 07:28 | NUR ---
OPENING NOTE Patient resting in the bed. No acute distress. Skin warm and dry to touch. IV intact to RFA, no redness, no swelling, no drainage. On Folvite at 42ml/hr and NS at 175ml/hr, infusing well. Safety measure maintained. Call light within reached. Bed locked in low position, side rails up. Refused bed alarm, risk and benefit explained, verbally understanding. Will continue to monitor.
[2019-09-17 07:50] VITALS: BP_SYST 125
[2019-09-17] MEDS: THIAMINE HCL 100 MG, MAGNESIUM SULFATE 1 GM in NS 100 ML IV SCH (09:15)
[2019-09-17] MEDS: PANTOPRAZOLE SODIUM 40 MG TAB PO SCH (09:16)
[2019-09-17] MEDS: FOLIC ACID 1 MG, MVI 10 ML in NACL 0.9% 1,000 ML IV SCH (09:16)
--- NOTE | 2019-09-17 09:17 | NUR ---
DILAUDID GIVEN Patient c/o abd pain 01/14, Dilaudid 1mg IVP given as ordered. NO acute distress. Safety measure maintained. Call light within reached. Bed locked in low position, side rails up. Continue to monitor.
--- NOTE | 2019-09-17 11:05 | NUR ---
SEEN AND EXAMINED BY RONALDO HESS.
--- NOTE | 2019-09-17 12:19 | NUR ---
DILAUDID GIVEN Patient c/o abdomen pain 02/14, Dilaudid 1mg IVP given as ordered. NO acute distress. Safety measure maintained. Call light within reached. Bed locked in low position, side rails up. Continue to monitor.
[2019-09-17 12:47] VITALS: BP_SYST 131
--- NOTE | 2019-09-17 13:20 | NUR ---
OUT OF UNIT FOR SMOKING WITH GAS METER PROVER IN STABLE CONDITION VIA WHEELCHAIR.
--- NOTE | 2019-09-17 13:35 | NUR ---
BACK TO UNIT AFTER SMOKING IN STABLE CONDITION.
[2019-09-17 16:58] VITALS: BP_SYST 150
--- NOTE | 2019-09-17 17:20 | NUR ---
Dietitian Recommendations * Consider advance to clear liquid diet if/when medically appropriate (ONS Ensure Clear TID comes standard w/ this diet; provides 720 kcal/day, 24 gm protein/day) AUGUSTO, LUMA Please refer to Nutrition Assessment for details. Addendum: 09/17/19 at [address] Amended: Links added.
--- NOTE | 2019-09-17 18:55 | NUR ---
CLOSING NOTE Patient resting in the bed. No acute distress. PRN pain med given around clock. Skin warm and dry to touch. IV intact to RFA, no redness, no swelling, no drainage. On Folvite at 42ml/hr and NS at 175ml/hr, infusing well. All needs met. Safety measure maintained. Call light within reached. Bed locked in low position, side rails up. Refused bed alarm, risk and benefit explained, verbally understanding. Will endorse to night nurse.
--- NOTE | 2019-09-17 19:00 | NUR ---
OPENING NOTES Patient is resting in bed, no signs of distress observed, patient requests to go on a smoke break. IVF running, dressings c/d/i. Patient states that pain is around 6/10. Call light within reach, bed alarm refused after patient education provided and patient verbalizes understanding, bed at lowest position. Will continue to monitor.
[2019-09-17 20:00] VITALS: BP_SYST 127
--- NOTE | 2019-09-17 20:00 | NUR ---
Patient is accompanied by CHEMICAL PLANT MANAGER and security to go smoke outside, vitals within normal limits, no distress observed before going. Will continue to monitor and reconnect to IVF.
[2019-09-17] MEDS: cefTRIAXone 1 GM IVPB PREMIX 50 ML IV SCH (21:31)
[2019-09-17] MEDS: LORazepam 2 MG/ML VIAL IVP PRN (23:55)
--- NOTE | 2019-09-18 00:01 | NUR ---
Patient is resting, no signs of distress observed. Watching television. Will continue to monitor.
[2019-09-18 00:11] VITALS: BP_SYST 136
[2019-09-18] MEDS: NACL 0.9% 1,000 ML IV SCH ×6 (01:12→23:45)
[2019-09-18] MEDS: HYDROmorphone 1 MG INJ. 1 MG/ML AMPUL IVP PRN ×6 (01:14→20:52)
--- NOTE | 2019-09-18 04:11 | NUR ---
Patient snapped at [employer] that he would like to go smoke at a time when he wants to, and does not like that he has to wait. Explained to patient that we are not able to, and patient verbalizes he wants a patch if he is going to be this agitated. Will endorse to morning shift.
--- NOTE | 2019-09-18 06:24 | NUR ---
CLOSING NOTES Patient is resting, no signs of distress observed. Patient wants to go smoke but explained that we are not able to at this time. Patient verbalized understanding. IVF running, dressings c/d/i. Call light within reach, bed at lowest position, bed alarm refused after patient verbalized understanding. All needs met throughout shift. Will endorse care to oncoming shift.
--- NOTE | 2019-09-18 06:45 | NUR ---
Charge nurse, Latonia had notified nurse that patient had left the facility to smoke, and patient's IV tubing was at bedside not connected to the patient, catheter was still intact connected to patient. No staff had disconnected the patient from the IVF. Security was notified and security walked back with patient back to room, patient has no signs of distress and charge nurse was able to retrieve one cigarette neuro psych sales specialist from patient when providing education to patient.
--- NOTE | 2019-09-18 07:28 | NUR ---
OPENING NOTE Patient resting in the bed. No acute distress. Skin warm and dry to touch. IV intact to RFA, no redness, no swelling, no drainage. On Folvite at 42ml/hr and NS at 175ml/hr, infusing well. Discussed the smoking policy and needs to notify the nurse before going out for smoking, verbally understanding. Safety measure maintained. Call light within reached. Bed locked in low position, side rails up. Refused bed alarm, risk and benefit explained, verbally understanding. Will continue to monitor.
[2019-09-18 07:50] VITALS: BP_SYST 135
[2019-09-18] MEDS: FOLIC ACID 1 MG, MVI 10 ML in NACL 0.9% 1,000 ML IV SCH (08:58)
[2019-09-18] MEDS: THIAMINE HCL 100 MG, MAGNESIUM SULFATE 1 GM in NS 100 ML IV SCH (08:59)
[2019-09-18] MEDS: PANTOPRAZOLE SODIUM 40 MG TAB PO SCH (09:01)
--- NOTE | 2019-09-18 09:07 | NUR ---
DILAUDID GIVEN Patient c/o abd pain 02/14, Dilaudid 1mg IVP given as ordered. No acute distress. Safety measure maintained. Call light within reached. Bed locked in low position, side rails up. Continue to monitor.
--- NOTE | 2019-09-18 10:48 | NUR ---
ROUND Patient resting in the bed. No acute distress. IV intact, IVF infusing well. Safety measure maintained. Call light within reached. Continue to monitor.
--- NOTE | 2019-09-18 11:50 | NUR ---
OUT OF UNIT FOR SMOKING WITH MOTHER IN STABLE CONDITION AND AMBULATED IN STEADY GAIT.
[2019-09-18 12:00] VITALS: BP_SYST 138
--- NOTE | 2019-09-18 12:10 | NUR ---
BACK TO UNIT AFTER SMOKING IN STABLE CONDITION, AMBULATED IN STEADY GAIT.
[2019-09-18 13:26] LABS: CALCIUM 8.4 mg/dL (8.4-11.0); CREATININE 0.65 mg/dL (0.55-1.30); POTASSIUM 3.7 mmol/L (3.5-5.1)
[2019-09-18 13:29] LABS: ALBUMIN 2.9 g/dL (3.4-4.8); TOTAL BILIRUBIN 0.4 mg/dL (0.0-1.0)
--- NOTE | 2019-09-18 15:10 | NUR ---
OUT OF UNIT FOR SMOKING WITH FATHER IN STABLE CONDITION AND AMBULATED IN STEADY GAIT.
--- NOTE | 2019-09-18 15:25 | NUR ---
BACK TO UNIT AFTER SMOKING IN STABLE CONDITION, AMBULATED IN STEADY GAIT.
[2019-09-18 16:00] VITALS: BP_SYST 142
--- NOTE | 2019-09-18 16:43 | NUR ---
DILAUDID GIVEN Patient c/o abd pain 01/14, Dilaudid 1mg IVP given as ordered. No acute distress. Father at bedside. Safety measure maintained. Call light within reached. Bed locked in low position, side rails up. Continue to monitor.
--- NOTE | 2019-09-18 18:50 | NUR ---
CLOSING NOTE Patient resting in the bed. No acute distress. PRN pain med given around clock. Skin warm and dry to touch. IV intact to RFA, no redness, no swelling, no drainage. IVF infusing well. All needs met. Safety measure maintained. Call light within reached. Bed locked in low position, side rails up. Refused bed alarm, risk and benefit explained, verbally understanding. Will endorse to night nurse.
--- NOTE | 2019-09-18 20:00 | NUR ---
OPENING NOTES Pt and endorsement received from day shift. Pt is AAOx4, lying in bed. Pt on IVF of NS at 175ml/hr and Banana bag at 42ml/hr and are infusing well on left AC G20. Pt complains of abdominal pain at this time and will be given. No signs of acute distress or SOB noted. Encouraged to use call light when needed. Safety precautions in place with 2 side rails up, wheels locked, and bed in lowest level. Call light with pt. Will continue to monitor.
[2019-09-18 20:50] VITALS: BP_SYST 139
[2019-09-18] MEDS: cefTRIAXone 1 GM IVPB PREMIX 50 ML IV SCH (20:52)
--- NOTE | 2019-09-18 20:52 | NUR ---
PAIN MED Pt complained of middle abdominal pain with a scale of 8/10. Vital signs taken and recorded. Dilaudid 1mg IVP given as ordered. Educated on safety and side effects like dizziness and drowsiness, pt verbalized understanding. Safety precautions in place and call light with pt. Will continue to monitor.
[2019-09-19] VITALS (7 sets, daily range): BP systolic 116–143
[2019-09-19] MEDS: HYDROmorphone 1 MG INJ. 1 MG/ML AMPUL IVP PRN ×7 (00:05→20:50)
--- NOTE | 2019-09-19 00:05 | NUR ---
PAIN MED Pt complained of middle abdominal pain with a scale of 8/10. Vital signs taken by GERALDINE Cedeno and will be recorded. Dilaudid 1mg IVP given as ordered. IVF infusing well. Reeducated on safety and side effects like dizziness and drowsiness. Safety precautions in place and call light with pt. Will continue to monitor.
--- NOTE | 2019-09-19 03:07 | NUR ---
PAIN MED Pt complained of middle abdominal pain with a scale of 7/10. BP and [place] taken and recorded. Dilaudid 1mg IVP given as ordered. No signs of acute distress. IVF infusing well. Safety precautions in place and call light with pt. Will continue to monitor.
[2019-09-19] MEDS: NACL 0.9% 1,000 ML IV SCH ×4 (05:20→22:56)
--- NOTE | 2019-09-19 06:36 | NUR ---
CLOSING NOTES Pt is resting in bed with both eyes closed, with visible chest rise and fall with non-labored breathing noted. Pain med was given at 0611hours. No complains of pain or discomfort at this time. No signs of acute distress or SOB noted. IVF and Banana bag are infusing well. All needs attended throughout the shift. Safety precautions in place with 2 side rails up, wheels locked, and bed in lowest level. Call light with pt. Will endorse to day shift nurse.
[2019-09-19 06:42] LABS: CALCIUM 8.6 mg/dL (8.4-11.0); CREATININE 0.6 mg/dL (0.55-1.30); POTASSIUM 3.8 mmol/L (3.5-5.1)
--- NOTE | 2019-09-19 08:00 | NUR ---
RN INITIAL NOTES RECEIVED PATIENT IN BED ALERT NO DISTRESS , CONT WITH BANANA BAG INFUSION ORDERED, TOLERATING CONT WITH PAIN MGT
[2019-09-19] MEDS: PANTOPRAZOLE SODIUM 40 MG TAB PO SCH (08:05)
[2019-09-19] MEDS: FOLIC ACID 1 MG, MVI 10 ML in NACL 0.9% 1,000 ML IV SCH (08:57)
--- NOTE | 2019-09-19 10:00 | NUR ---
GI ROUNDS PATIENT IN BED NO DISTRESS , SEEN BY DR OSCAR WILL CONT WITH FULL LIQUID , TOLERATING
--- NOTE | 2019-09-19 12:27 | NUR ---
ROUNDS PATIENT IN BED AMBULATORY NO DISTRESS , OK WITH FULL LIQUID AND TOLERATING
[2019-09-19] MEDS: THIAMINE HCL 100 MG, MAGNESIUM SULFATE 1 GM in NS 100 ML IV SCH (12:44)
--- NOTE | 2019-09-19 14:27 | NUR ---
MINERVA TUTTLE MD WAS CALLED AND MINERVA TUTTLE ORDERED
[2019-09-19] MEDS ORDERED: NICOTINE 21 MG/24 HR PATCH.TD24 TD ONE (14:30)
--- NOTE | 2019-09-19 17:28 | NUR ---
Nutrition F/U (short note d/t high patient load) RD reviewed pt's current EMR including diet Hx, physician notes, nursing notes, pertinent labs/meds/procedures, care trends, and care activity. Current Diet Order/Nutrition Support: Full liquid x1 day Pt seen resting in bed w/ lunch tray less than 25% eaten. Pt reported that he tries to take in what he can and that he has been eating slowly d/t pain associated w/ consumption of any of the liquid items. Pt stated he drank 100% of Ensure Enlive (strawberry) at breakfast. No BM, but attested to gas. No N/V/C/D reported. Current diet remains appropriate at this time; consider advance diet if/when medically appropriate. Pt remains at high nutritional risk; RD to F/U within 2-3 days.
--- NOTE | 2019-09-19 17:57 | NUR ---
END RN NOTES WILL ENDORSED TO NEXT SHIFT CONT CARE ,PATIENT AMBULATORY AND AWARE THAT IF TOMORROW HE WILL TOLERATE FULL LIQUID AND HE WILL HAVE DC PLAN, CONT ON PAIN MGT SHOT , REEDUCATED PATIENT THAT HE NEEDS TO REFRAIN FROM DILAUDID SHOT SO WHEN HE GOES HOME HE NEEDS PO , WILL REFER PATIENT TO ATTENDING IN AM
--- NOTE | 2019-09-19 19:25 | NUR ---
CHANGE OF SHIFT; pt. awake, alert, watching tv when received, verbalizing IV leaking, will check. asking for pain med, will assess first and checked VS. call light within reach.
[2019-09-19] MEDS: cefTRIAXone 1 GM IVPB PREMIX 50 ML IV SCH (20:34)
--- NOTE | 2019-09-19 20:50 | NUR ---
NOTES: pt. medicated with IV Dilaudid for c/o abdominal pain. on full liquid, no nausea nor vomiting. IV (banana bag ) infusing via left antecubital and NS @ 175 cc/hr. ambulates to the restroom. needs attended. call light within reach.
--- NOTE | 2019-09-19 22:00 | NUR ---
NOTES: pt. been dozing on and off, noted relief. IV infusing.
[2019-09-20] MEDS: HYDROmorphone 1 MG INJ. 1 MG/ML AMPUL IVP PRN ×3 (00:08→08:39)
--- NOTE | 2019-09-20 00:10 | NUR ---
NOTES: pt. awakened and c/o abdominal pain, medicated with IV Dilaudid. repositioned self for comfort. IVF infusing and keep aptent on left antecubital. call light at bedside.
[2019-09-20 01:14] VITALS: BP_SYST 129
--- NOTE | 2019-09-20 02:00 | NUR ---
NOTES: pt. sleeping when made rounds.
[2019-09-20] MEDS: NACL 0.9% 1,000 ML IV SCH ×2 (03:32→12:23)
--- NOTE | 2019-09-20 04:45 | NUR ---
NOTES: pt. awakened, c/o abdominal pain, medicated with IV Dilaudid. pt. needs attended.
--- NOTE | 2019-09-20 06:30 | NUR ---
CLOSING NOTES; pt. still asleep when rechecked. IVF infusing continuously. IV site patent on left antecubital. for further care and assist. call light within reach. pt. noted to have one loose BM.
[2019-09-20 06:43] LABS: BASOPHILS % (AUTO) 0.6 % (0.0-2.0); EOSINOPHILS # (AUTO) 0.1 K/uL (0.0-0.4); EOSINOPHILS % (AUTO) 1.3 % (0.0-4.0); HEMATOCRIT 41.4 % (36-54); HEMOGLOBIN 13.9 g/dL (14.0-18.0); LYMPHOCYTES # (AUTO) 2.2 K/uL (1.0-5.5); LYMPHOCYTES % (AUTO) 34.8 % (20.5-51.5); MEAN CORPUSCULAR HEMOGLOBIN 33 pg (27-31); MEAN CORPUSCULAR HGB CONC 34 % (32-36); MEAN CORPUSCULAR VOLUME 98 fL (79.0-98.0); MONOCYTES # (AUTO) 0.5 K/uL (0.0-1.0); MONOCYTES % (AUTO) 7.8 % (1.7-9.3); NEUTROPHILS # (AUTO) 3.6 K/uL (1.8-7.7); NEUTROPHILS % (AUTO) 55.5 % (40.0-70.0); PLATELET COUNT (AUTO) 338 K/uL (130-430); RED BLOOD CELL COUNT(AUTO) 4.23 MIL/uL (4.2-6.2); RED CELL DISTRIBUTION WIDTH 13.4 % (9.0-15.0); WHITE BLOOD COUNT (AUTO) 6.4 K/uL (4.8-10.8)
[2019-09-20 06:53] LABS: CREATININE 0.74 mg/dL (0.55-1.30); POTASSIUM 4.4 mmol/L (3.5-5.1)
--- NOTE | 2019-09-20 07:22 | NUR ---
RN INITIAL NOTES RECEIVED PATIENT IN BED SLEEPING AT THIS TIME , NO DISTRESS , CONT WITH SAME IVF ORDERED , SEEN BY DR OSCAR AND WILL FOLLOW UP LIPASE RESULT IST THEN TO CALL HIM ONCE IN FOR POSSIBLE ADVANCING THE DIET
[2019-09-20 08:00] VITALS: BP_SYST 127
[2019-09-20] MEDS: THIAMINE HCL 100 MG, MAGNESIUM SULFATE 1 GM in NS 100 ML IV SCH (08:40)
[2019-09-20] MEDS: PANTOPRAZOLE SODIUM 40 MG TAB PO SCH (08:41)
[2019-09-20] MEDS: FOLIC ACID 1 MG, MVI 10 ML in NACL 0.9% 1,000 ML IV SCH (08:41)
[2019-09-20] MEDS ORDERED: NICOTINE 21 MG/24 HR PATCH.TD24 TD SCH (09:00)
[2019-09-20] MEDS: ONDANSETRON HCL 4 MG/2 ML VIAL IVP PRN (10:00)
--- NOTE | 2019-09-20 10:04 | NUR ---
VOMITTING PATIENT HAD A SMALL EMESIS ZOFRAN GIVEN
[2019-09-20 12:00] VITALS: BP_SYST 120
--- NOTE | 2019-09-20 12:00 | NUR ---
ROUNDS PATIENT IN BED WATCHING TV AWAITING FOR DC TODAY , DR JORDAN WAS PAGED FOR PATIENT DC ORDER
[2019-09-20] MEDS ORDERED: FOLI-43 PO (13:10)
[2019-09-20] MEDS ORDERED: THIA100T70 PO (13:11)
[2019-09-20] MEDS ORDERED: HYDR-4273 PO (13:14)
[2019-09-20] MEDS ORDERED: MULT-1089 PO (13:15)
--- NOTE | 2019-09-20 13:20 | NUR ---
D/C Patient Patient given medication reconciliation form and D/C instructions. Exit Care provided. Patient verbalized understanding. MD discussed with patient the results and treatment provided. Ambulatory with steady gait for discharge to home. Patient in stable condition, ID band removed. IV catheter removed, intact and dressing applied, no active bleeding. Rx given to patient and will fruit picker machine operator from his pharmacy of choice ,patient stated he will call his pcp for follow up within a week as advised by attending dr . Patient educated on pain management. All belongings sent with patient.
[2019-09-20 13:52] VITALS: BP_SYST 127
== END 2019-09-20 13:20 | disposition home or self-care (01) | DRG 391 ==
LOC: SED 16:09 → SMU 20:30
PROVIDERS: ADMIT Internal Medicine Hospice and Palliative Medicine; ATTEND Internal Medicine Hospice and Palliative Medicine
DX: K57.90 Diverticulosis of intestine, part unspecified, without perforation or abscess without bleeding (principal); K85.20 Alcohol induced acute pancreatitis without necrosis or infection; E44.1 Mild protein-calorie malnutrition; K86.1 Other chronic pancreatitis; Y90.9 Presence of alcohol in blood, level not specified; K86.81 Exocrine pancreatic insufficiency; F10.20 Alcohol dependence, uncomplicated; Z79.899 Other long term (current) drug therapy
CPT/HCPCS: 36415; 80048; 80053; 80061; 83690-TC; 83735-TC; 85025; 96361; 96374; 96375; 99285; G0482; J0696; J1170; J1200; J1885; J2060; J2270; J2405; J3411; J3475; J3490; J7030; Q9964; Q9967